=== PATIENT | male | born 1935 | race Caucasian/White ===

== ENCOUNTER 2017-05-03 01:21 | Day surgery (SDC) | payer MEDICARE, OTHER ==
[2017-05-03] VITALS (12 sets, daily range): BP systolic 140–194; BP diastolic 63–97; PULSE 53–77; RESP 15–19; O2SAT 92–97
[~2017-05-03] VITALS: Ht 170.2 cm; Wt 79.3 kg
[~2017-05-03 01:21] MED LIST: ASPI-973 PO; ATEN50TA PO; CHOL10008 PO; CLOT15CR5 TOPICAL; CYAN1TAB7 SL; DILT240C89 PO; FINA5TAB9 PO; LOSA100T29 PO; OMEG1CAP56 PO; OMEP20TA24 PO; SIMV40TA2 PO; TAMS0.4C29 PO
[2017-05-03 09:17] LABS: BASOPHILS % (AUTO) 0.5 % (0-3); EOSINOPHILS % (AUTO) 2.1 % (0-5); MONOCYTES % (AUTO) 7.7 % (4-12); Mean Corpuscular Hemoglobin 29.7 pg (27.0-35.0); Mean Corpuscular Volume 88.5 fL (81-100); NEUTROPHILS % (AUTO) 61.2 % (40-74); Platelet Count 199 bil/L (150-400)
[2017-05-03] MEDS ORDERED: Diltiazem CD 240 mg ER24 Capsule PO ONE (09:35)
--- NOTE | 2017-05-03 09:35 | NUR ---
Patient admitted for pacemaker insertion with Dr Ch.He is concerned that he did not take his morning meds. Dr Ch informed of this and that BP is 194/87.Order received to give patient his morning meds, ordered from pharmacy.
[2017-05-03] MEDS ORDERED: CeFAZolin Inj 2 GM in IV Premix 1 EACH IV SCH (11:05)
[2017-05-03] MEDS ORDERED: 0.9% Sodium Chloride 1,000 ML IV SCH (11:05)
--- NOTE | 2017-05-03 13:08 | NUR ---
Patient continues to be delayed.Offered ice chips and NS started.
[2017-05-03] MEDS ORDERED: fentaNYL-PF 50 mCg/mL 2 mL Inj ONE (14:04)
[2017-05-03] MEDS ORDERED: 0.9% Sodium Chloride 250 ML ONE (14:17)
[2017-05-03] MEDS ORDERED: Heparin 10,000 Unit/1,000 mL NS Premix IV ONE (14:18)
[2017-05-03] MEDS ORDERED: Bupivacaine-MPF 0.5% 30 mL Inj ONE (14:18)
[2017-05-03] MEDS ORDERED: hydrALAZINE 20 mg/mL Inj ONE (14:38)
--- NOTE | 2017-05-03 15:29 | NUR ---
Assumed care of patient Received report.
[2017-05-03] MEDS: 0.9% Sodium Chloride 1,000 ML IV SCH (17:24)
[2017-05-03] MEDS ORDERED: HYDROcodone-APAP 5-325 mg Tablet PO PRN (17:25)
[2017-05-03] MEDS ORDERED: Ondansetron 2 mg/mL 2 mL Inj IVPUSH PRN (17:25)
--- NOTE | 2017-05-03 18:02 | DRSVH ---
PROCEDURE: X-RAY CHEST ONE VIEW, PORTABLE ([id number]) INDICATIONS: For new leads placed TECHNIQUE: One view of the chest was acquired. COMPARISON: None. FINDINGS: Surgical changes and devices: There is a dual-lead cardiac pacer. Lungs and pleura: No pleural effusions or pneumothorax. Lungs are clear. Mediastinum: Mediastinal contours appear normal. Heart size is normal. Bones and chest wall: No suspicious bony lesions. Overlying soft tissues appear unremarkable. IMPRESSION: No pneumothorax after pacer placement. Dictated by: Galina Locke M.D. on 05/03/2017 at 18:00 Approved by: Galina Locke M.D. on 05/03/2017 at 18:01
--- NOTE | 2017-05-03 19:15 | NUR ---
Report given to Milton sampson, to receive pt to [facility] [place] [facility] [place]26
--- NOTE | 2017-05-03 19:35 | NUR ---
Transferred pt to room 3022
[2017-05-04 00:57] VITALS: BP 160/79; PULSE 67; RESP 18; O2SAT 93
[2017-05-04] MEDS: 0.9% Sodium Chloride 1,000 ML IV SCH (01:50)
[2017-05-04 04:58] VITALS: BP 170/93; PULSE 62; RESP 18; O2SAT 93
--- NOTE | 2017-05-04 05:50 | NUR ---
Fluid Intake Tolerating fluids, drank two glasses of apple juice and one decaf coffee. Prefers not to have IV fluids.
[2017-05-04 05:58] VITALS: PULSE 65
[2017-05-04] MEDS ORDERED: Pantoprazole 40 mg ER24 Tablet PO SCH (06:30)
[2017-05-04] MEDS ORDERED: Omega-3 Fatty Acids 1,000 mg Capsule PO SCH (08:30)
[2017-05-04] MEDS ORDERED: Diltiazem CD 240 mg ER24 Capsule PO SCH (08:30)
--- NOTE | 2017-05-04 10:10 | PCM.DIMED ---
Discharge Instructions Date of Service May 04, 2017 Dates of Hospitalization 05/03/2017 Discharge Diagnosis Discharge Diagnosis Cardiac Pacemaker in situ [place] [employer] Accolate MRI Sick sinus syndrome Paroxysmal atrial fibrillation Hypertension Benign Prostatic Hypertrophy Tremors Hyperlipidemia Diet Discharge Diet: Heart Healthy Activity Discharge Activity: Other (Limited until seen in the office. ) Call your provider Call your provider for: Fever or Chills, Shortness of breath, Bleeding, Chest pain, Vomitting Patient Instructions Follow-up in: 1 week Follow-up with Mid-level in: 1 week Leo Ch MD May 04, 2017 10:10
[2017-05-04] MEDS ORDERED: RIVA15TA PO (10:13)
--- NOTE | 2017-05-04 10:17 | DRSVH ---
PROCEDURE: X-RAY CHEST, TWO VIEWS ([id number]) INDICATIONS: For new lead placement TECHNIQUE: 2 views of the chest were acquired. COMPARISON: [facility], CR, XR CHEST 1VW (PORTABLE), 05/03/2017, 17:35. FINDINGS: Surgical changes and devices: Pacemaker device and dual chamber leads normal. Lungs and pleura: No pleural effusions or pneumothorax. Lungs are clear. Mediastinum: Mediastinal contours are normal. Heart size is normal. Bones and chest wall: No suspicious bony abnormalities. Soft tissues appear unremarkable. IMPRESSION: No pneumothorax, pacemaking device and dual chamber leads appear normal. Dictated by: Zane Monzon M.D. on 05/04/2017 at 10:14 Approved by: Zane Monzon M.D. on 05/04/2017 at 10:14
--- NOTE | 2017-05-04 11:46 | NUR ---
Discharge D/C to home with family. Discharge packet provided with instructions, care notes and RX. No pacer packet/serial numbers accompany chart, instructed to f/u with cardiology for info. Dressing changed and wound care/shower info discussed. Pt and family comfortable with plan of care at this time. Escorted off floor via w/c and RN with all belongings and sling in place.
--- NOTE | 2017-05-04 14:41 | DIS ---
[address] [address] DISCHARGE SUMMARY PATIENT: ABNER RAMOS V : 1935 MR#: [id number] ADMIT: 05/03/2017 JOB ID: [id number] DIS: 05/03/2017 REASON FOR ADMISSION: Post pacemaker observation. FINAL DIAGNOSIS: 1. Sick sinus syndrome. 2. Cardiac pacemaker in situ. 3. [employer] MRI compatible Accolade generator with Ingevity right atrial and right ventricular leads. 4. Paroxysmal atrial fibrillation. 5. Hypertension. 6. Hyperlipidemia. 7. Tremors. 8. Benign prostatic hypertrophy. 9. Chronic pernicious anemia. DISCHARGE MEDICATIONS: 1. Atenolol 50 mg daily. 2. Vitamin D3 cholecalciferol 1000 units daily. 3. Cyanocobalamin 5000 mcg daily. 4. Diltiazem 240 mg oral daily. 5. Finasteride 5 mg oral daily. 6. Losartan 100 mg oral daily. 7. Crosby-3 fatty acids one tablet 1000 mg daily. 8. Omeprazole 40 mg daily. 9. Simvastatin 20 mg at bedtime. 10. Tamsulosin 0.4 mg oral daily. 11. Xarelto 50 mg daily. PROCEDURES PERFORMED DURING THIS HOSPITALIZATION: 1. Permanent pacemaker implantation. 2. Ultrasound-guided venous axis of the subclavian vein. 3. Chest x-ray post procedure. 4. Device interrogation on the day of discharge. HOSPITAL COURSE: The patient was admitted to the hospital after successful dual-chamber permanent pacemaker implantation. The patient while undergoing the procedure had fracture of the right ventricular lead. The lead was subsequently explanted successfully. A new right ventricular lead was successfully placed and a right atrial lead was also placed successfully without any complications. The procedure was successful. No pneumothorax immediate postprocedure and post 24 hours of procedure note was noted. The device demonstrated excellent sensing and pacing parameters on the day of discharge. The atrial lead intrinsic amplitude 4 mV, impedance of 700 ohms, and pacing threshold of 0.8 V at 40 msec. Ventricular intrinsic amplitude of more than 25. Pacing impedance of 850 ohms and pacing threshold of 0.6 V at 40 msec. The wound site appeared healthy. There was no bleeding, redness, or swelling noted. There was no significant ecchymosis as well. The patient was alert, oriented. Review of the telemetry showed episodes of paroxysmal atrial fibrillation. The patient did report that he was having more tremors. On the day of discharge, I evaluated him he was in sinus rhythm. Although he complained of a tremors, the patient does have a history of tremors. This is probably related to anxiety and stress of being in the hospital. Nonetheless I had a long discussion with him about anticoagulation. After a thorough discussion he agreed to start Xarelto, so therefore 15 mg of Xarelto was added to his regimen. DISCHARGE INSTRUCTIONS: Standard wound care discharge instructions were given to the patient. The patient is advised to follow up with me in the office a week from discharge. He will call and make an appointment. TIME: More than 30 minutes.
--- NOTE | 2017-05-04 15:07 | OUT PROC ---
[address] [address] PROCEDURE NOTE PATIENT: ABNER RAMOS V : 1935 MR#: [id number] ADMIT: 05/03/2017 JOB ID: [id number] DATE OF PROCEDURE: PROCEDURE: 1. Dual-chamber permanent pacemaker implantation. 2. Ultrasound-guided venous access to his left subclavian vein. 3. Intraoperative fracture of the right ventricular lead. 4. Explantation of the right ventricular lead. CONSENT: The patient was explained the risks, benefits, and alternatives of the procedure. Informed signed consent was obtained and placed in the chart. PROCEDURE: Patient was brought to the cath laboratory and placed on the cath table. The left infraclavicular area was prepped and draped in the usual sterile manner. Two IV lines were established. Procedure sedation was administered. Please see the event log. Patient was monitored during the procedure by me and by the nurse present in the lab clerk. Left infraclavicular area was prepped and draped in the usual sterile manner. Anatomical landmarks were established. An ultrasound was performed and the left subclavian vein was visualized. One percent lidocaine was infiltrated to achieve topical anesthesia. Subsequently under direct ultrasound guidance, left subclavian vein was accessed. An attempt was made to access the 2nd access, however, was unsuccessful. The dilator was inserted and over the micropuncture wire and exchanged with a J-wire. Subsequently, two J-wires were inserted and anchored to the operative field. Subsequently, a 3-inch long incision was made approximately two fingers below the lateral third of the clavicle and medial to the deltopectoral groove. The skin and subcutaneous fat and fascia was dissected. The prepectoral fascia was identified and subsequently dissected, both superiorly and inferiorly. along the surgical incision line. The J-wires were pulled out of the skin and into the pacemaker pocket. The venous sheath was advanced over the J-wire. The right ventricular lead, model 7742, 59 cm, O[employer], serial #[id number], was advanced under direct fluoroscopy. The lead was anchored into the right ventricular apex. Suboptimal sensing and pacing thresholds were obtained. However, after repositioning of the right ventricular pacemaker wire, satisfactory sensing and pacing parameters were obtained. The venous sheath was peeled off the right ventricular lead and the lead was anchored to the prepectoralis fascia using a standard sleeve over the pacemaker wire. However, at the time of reinterrogation, I noted right ventricular lead impedance of more than 3000. We made sure the connections were appropriate. However, the impedance continued to be more than 2500. We suspected a lead fracture. At that time, the right ventricular lead sleeve was dissected and from the prepectoralis fascia. The lead corkscrew was retracted under direct fluoroscopy and the lead was gently withdrawn under direct fluoroscopy from the right ventricle, right atrium and into the right superior vena cava and left subclavian vein. Subsequently, the new right ventricular lead, [employer] Ingevity, serial #[id number] was advanced under direct fluoroscopy along with a straight stylus. The straight stylus was exchanged with a curved stylus. The lead was advanced to the right ventricular apex and at the junction of lower septal wall. Good sensing and pacing parameters were obtained. The lead was actively fixated. The venous sheath was peeled off the right ventricular lead. The lead sleeve was anchored to the prepectoral fascia in a standard manner. The 2nd J wire, the venous sheath was advanced under direct fluoroscopy. The right atrial lead, 52 cm, Ingevity, model 7741, serial #[id number], was advanced. It was placed in the right atrium at the level of tricuspid valve. The preformed curved stylus was advanced into the right atrial lead. The lead was allowed to fall into the right atrial appendage and then subsequently actively fixated. The good sensing and pacing parameters were obtained. The lead was kept stable, and therefore, the preformed stylus was withdrawn making sure it did not move. Subsequent measurement of the sensing and pacing parameters demonstrates satisfactory numbers. The venous sheath was peeled off and the right atrial lead was again anchored to the prepectoralis fascia using a sleeve in a standard manner. The right atrial lead and the right ventricular lead were subsequently connected to [employer] Accolade MRI condition device, model L311, serial #[id number], was connected. We made sure there were good connections. Subsequently, the pacemaker pocket was irrigated with antibiotic solution. No significant bleeding was noted. The pacemaker wires were inserted in the pocket along with the generator. The generator was anchored to the prepectoral fascia in a standard manner. The subcutaneous tissue was closed with two 0-polyabsorbable sutures. Subsequently, the skin was closed with 4-0 polyabsorbable sutures. At the time of completion of the procedure, repeat interrogation of the right atrium and right Ventricular leads was performed. Satisfactory numbers were obtained and recorded in the implant registration. Final fluoroscopy shot was obtained to make sure adequate slack, as well position of the pacemaker was adequate. Total fluoro time was 17.2 minutes. CONTRAST: None. Procedural sedation was given. In addition, hydralazine was given intraoperatively due to elevated blood pressures. DEVICE IDENTIFICATION: Generator: [employer] BRIS1, model L311, serial #[id number]. Right atrial lead, Ingevity, 52 cm, model 7741, serial #[id number]. The right ventricular lead is Ingevity MRI, 59 cm, model 7742, serial #[id number]. The explanted lead, Ingevity MRI, model 7742, 59 cm, serial #[id number]. MEASURED DATA: Right atrium: Intrinsic 4.4 mV with a capture threshold of 0.8 V at 40 msec, impedance of 707 ohms. Right ventricular: 25 mV, capture threshold of 0.6 V at 40 msec, and impedance of 879 ohms. Programmed parameters: DDDR, lower rate of 60, upper rate of 120, paced AV delay of 150 msec. AV search is turned off. AV interval is 240-280 msec. IMPRESSION: 1. Successful dual-chamber permanent pacemaker implantation. 2. Successful explantation of the right ventricular lead secondary to right ventricular lead fracture. [facility]
== END 2017-05-04 12:00 | disposition home or self-care (01) ==
LOC: SOUO 01:21 → MPC 18:12 → SOUO 23:59
PROVIDERS: ATTEND Internal Medicine Cardiovascular Disease
DX: I49.5 Sick sinus syndrome (principal); I48.0 Paroxysmal atrial fibrillation; I10 Essential (primary) hypertension; E78.5 Hyperlipidemia, unspecified; R25.1 Tremor, unspecified; N40.0 Benign prostatic hyperplasia without lower urinary tract symptoms; D51.0 Vitamin B12 deficiency anemia due to intrinsic factor deficiency; Z79.899 Other long term (current) drug therapy
CPT/HCPCS: 33208; 36415; 71010; 71020; 80048; 85025; 85610; 93005; 99152; 99153; C1769; C1785; C1892; C1898; J0360; J0690; J1644; J2250; J2405; J3010; J7050